=== PATIENT | male | born 1940 | race Caucasian/White ===

== ENCOUNTER 2016-09-10 10:49 | Day surgery (SDC) | payer OTHER, MEDICARE ==
[2016-09-10] MEDS ORDERED: LIDOCAINE 1% 2 ML INJ ONE (11:25)
[2016-09-10] MEDS ORDERED: LIDOCAINE 1% 5 ML SDV ID PRN (11:44)
[2016-09-10] MEDS ORDERED: LR 1,000 ML IV ONE (11:44)
[2016-09-10] MEDS ORDERED: PROPOFOL/EMULSION 500 MG/50 ML BOTTLE IV ONE (12:12)
[2016-09-10] MEDS ORDERED: LIDOCAINE 2% 100 MG/5 ML SYR ONE (12:13)
--- NOTE | 2016-09-10 13:42 | GPN ---
[f rep st] PROCEDURE NOTE PREPROCEDURE DIAGNOSIS: Melena and bright red blood per rectum. POSTPROCEDURE DIAGNOSES: 1. Mild gastritis. 2. Diverticulosis. 3. Grade 2 internal hemorrhoids. 4. Mild nonspecific sigmoid colitis. 5. Three colon polyps, status post removal using cold biopsy forceps. PROCEDURES: Esophagogastroduodenoscopy with biopsies, colonoscopy with biopsies. MEDICATIONS: Monitored anesthesia care. INDICATIONS: The patient is a 76-year-old male with history of Parkinson disease and lower abdomin al pain, as well as hematochezia and melena. He was seen in our office for these reasons. He is here today for further evaluation of bright red blood per rectum and melena. The risks and benefits of t he procedure were discussed with the patient. Consent obtained. Risks include, but not limited to, b leeding, perforation, risks associated with sedation. The patient is ASA Class 2. DESCRIPTION OF PROCEDURE: The upper endoscope was inserted into the esophagus, into the stomach and second portion of the duodenum. The esophagus appears normal. The Z-line is regular. There was no e vidence of [place] esophagitis or varices. The stomach shows mild antral gastritis consistent with e rosions and erythema. Biopsies were taken using cold biopsy forceps to evaluate for Helicobacter pyl adan. The duodenum and second portion was normal. Retroflexed views in the stomach were normal. The p atient was then repositioned and the adult colonoscope was advanced into the terminal ileum which ap peared normal. The ileocecal valve, appendiceal orifice, cecum appeared normal. There is a 2 mm poly p in the ascending colon, which was removed using cold biopsy forceps and sent off to Pathology. The hepatic flexure, transverse colon, splenic flexure were normal. The descending colon shows one of t he 2 mm polyps which were removed using cold biopsy forceps and sent off for pathology. The sigmoid colon and descending colon show scattered diverticulosis. This is moderate in severity. In the sigmo id colon as well, there are 2 localized patchy areas of colitis. The first is 3 cm x 4 cm and contai ns a linear ulcer. Biopsies were taken and sent to Pathology. The second area is distal and is 2 cm x 3 cm and biopsies were taken and placed in a separate bottle. This colitis is nonspecific and may be related to prep-related injury or constipation. It does not have the classic appearance for eithe r infection or chronic colitis. Retroflexed views in the rectum showed grade 2 internal hemorrhoids. IMPRESSION: 1. Mild antral gastritis. 2. Diverticulosis. 3. Internal hemorrhoids, grade 2. 4. Colon polyps status post removal. 5. Patchy sigmoid colitis which was nonspecific and limited to 2 areas and not extensive. RECOMMENDATIONS: 1. Advance diet as tolerated. 2. Discharge to home with escort. 3. Continue current medications. 4. Follow up the final pathology results. Results available within 10 days. If 3 or more polyps are found to be adenomatous, repeat colonoscopy in 3 years is recommended. If 1-2 polyps adenomatous, r epeat colonoscopy in 5 years is recommended. 5. Avoid constipation and increasing dietary fiber. Recommend adding Benefiber 1-2 scoops orally da robert. Internal hemorrhoids can be treated also with hydrocortisone suppositories 25 mg rectally at [facility] [place] x[facility] days and I will offer this treatment to him today. 6. Follow up in our GI clinic as previously scheduled. 7. I thank you for allowing me to participate in the care of your patient. Please do not hesitate t o call with questions. /[id number]/MODL
== END 2016-09-10 14:00 | disposition home or self-care (01) ==
LOC: FSGY 10:49
PROVIDERS: ATTEND Internal Medicine Gastroenterology
PROC: 0DBK8ZX Excision of Ascending Colon, Via Natural or Artificial Opening Endoscopic, Diagnostic (ICD-10-PCS; principal; 2016-09-10 12:15)
PROC: 0DB68ZX Excision of Stomach, Via Natural or Artificial Opening Endoscopic, Diagnostic (ICD-10-PCS; principal; 2016-09-10 12:15)
PROC: 0DBM8ZZ Excision of Descending Colon, Via Natural or Artificial Opening Endoscopic (ICD-10-PCS; principal; 2016-09-10 12:15)
PROC: 0DBN8ZX Excision of Sigmoid Colon, Via Natural or Artificial Opening Endoscopic, Diagnostic (ICD-10-PCS; principal; 2016-09-10 12:15)
DX: D12.4 Benign neoplasm of descending colon (principal); D12.2 Benign neoplasm of ascending colon; K62.5 Hemorrhage of anus and rectum; K29.70 Gastritis, unspecified, without bleeding; K57.30 Diverticulosis of large intestine without perforation or abscess without bleeding; K52.9 Noninfective gastroenteritis and colitis, unspecified; K64.1 Second degree hemorrhoids; G20 Parkinson's disease; Z87.11 Personal history of peptic ulcer disease
CPT/HCPCS: J2001; J2704

== ENCOUNTER → 2017-07-22 | Outpatient (CLI) | payer OTHER, MEDICARE | LOC: BHFA 14:45 | PROVIDERS: ATTEND Internal Medicine Cardiovascular Disease | DX: R07.9 Chest pain, unspecified (principal); R06.02 Shortness of breath; I49.9 Cardiac arrhythmia, unspecified ==

== ENCOUNTER 2017-07-24 14:53 | Observation (INO) | payer OTHER, MEDICARE ==
--- NOTE | 2017-07-24 15:03 | CPEKG ---
Heart Rate: 73 RR Interval: 822 P-R Interval: 188 QRSD Interval: 98 QT Interval: 436 QTC Interval: 481 P [place]: 39 QRS [place]: -7 T Wave [place]: 49 EKG Severity - BORDERLINE ECG - EKG Impression: SINUS RHYTHM EKG Impression: PROBABLE LEFT ATRIAL ABNORMALITY EKG Impression: BORDERLINE PROLONGED QT INTERVAL Electronically Signed By: Kale Kenyon 24-Jul-2017 15:07:48
--- NOTE | 2017-07-24 15:18 | EDPHY ---
H & P Time Seen by Provider: 07/24/17 15:07 HPI/ROS: CHIEF COMPLAINT: Altered mental status HISTORY OF PRESENT ILLNESS: The patient is a 77-year-old man with a history of Parkinson's who comes to the emergency department with his and daughter. He had a stress test today. He is being worked up for an arrhythmia it but no definitive diagnosis yet. He has not had any chest pain or shortness of breath. A few hours After the stress test at 2:00 p.m. He seemed very confused to his and could not remember his work partners name or other things that are very normal for him to know. He also had slurred speech. His brought him to the ER where triage nurse noticed that he also had a facial droop. The family feels that the left corner of his mouth is drooping however when he smiles it is actually the right side of his mouth does not move. He denies vision changes. He has normal movement and strength in his extremities. He also complains of a severe left-sided headache. His and family state that his memory difficulties have improved dramatically since onset. He is not on blood thinners. REVIEW OF SYSTEMS: Constitutional: denies: chills, fever, recent illness, recent injury EENTM: denies: blurred vision, double vision, nose congestion Respiratory: denies: cough, shortness of breath Cardiac: denies: chest pain, irregular heart rate, lightheadedness, palpitations Gastrointestinal/Abdominal: denies: abdominal pain, diarrhea, nausea, vomiting, blood streaked stools Genitourinary: denies: dysuria, frequency, hematuria, pain Musculoskeletal: denies: joint pain, muscle pain Skin: denies: lesions, rash, jaundice, bruising Neurological: See HPI Hematologic/Lymphatic: denies: blood clots, easy bleeding, easy bruising Immunologic/allergic: denies: HIV/AIDS, transplant EXAM: GENERAL: Well-appearing, well-nourished and in no acute distress. HEAD: Atraumatic, normocephalic. EYES: Pupils equal round and reactive to light, extraocular movements intact, sclera anicteric, conjunctiva are normal. ENT: TMs normal, nares patent, oropharynx clear without exudates. Moist mucous membranes. NECK: Normal range of motion, supple without lymphadenopathy or JVD. LUNGS: Breath sounds clear to auscultation bilaterally and equal. No wheezes rales or rhonchi. HEART: Regular rate and rhythm without murmurs, rubs or gallops. ABDOMEN: Soft, nontender, normoactive bowel sounds. No guarding, no rebound. No masses appreciated. BACK: No CVA tenderness, no spinal tenderness, step-offs or deformities EXTREMITIES: Normal range of motion, no pitting or edema. No clubbing or cyanosis. NEUROLOGICAL: Right-sided droop, slurred speech. normal gait. 5/5 strength, normal movement in all extremities, normal and equal sensation no pronator drift. NIH score of 2 PSYCH: Normal mood, normal affect. SKIN: Warm, dry, normal turgor, no visible rashes or lesions. Source: Patient, Family Exam Limitations: No limitations - Medical/Surgical History Hx Asthma: No Hx Diabetes: No - Family History Significant Family History: No pertinent family hx - Social History Smoking Status: Never smoked Alcohol Use: Sober Drug Use: None Constitutional: Initial Vital Signs Temperature (C) 36.6 C 07/24/17 15:40 Heart Rate 75 07/24/17 15:40 Respiratory Rate 16 07/24/17 15:40 Blood Pressure 212/98 H 07/24/17 15:40 O2 Sat (%) 96 07/24/17 15:40 O2 Delivery Mode Room Air Allergies/Adverse Reactions: codeine Allergy (Verified 09/07/16 17:03) Other-Enter Comments Home Medications: Medication Instructions Recorded Carbidopa/Levodopa 25/100Mg 2 tab PO QID 09/07/16 [Sinemet 25/100 MG (*)] Cholecalciferol Vit D3 [Vitamin D3 1,000 units PO DAILY 09/07/16 (*)] Pramipexole Di-HCl [Mirapex 0.125 0.125 mg PO QID 09/07/16 mg (*)] Simvastatin 40 mg PO DAILY 09/07/16 clonazePAM [Klonopin (*)] 1 mg PO HS 09/07/16 diphenhydrAMINE [Benadryl 25 MG 25 mg PO HS PRN 09/07/16 (*)] Citalopram [CeleXA] 20 mg PO DAILY 07/24/17 Medical Decision Making - Diagnostics EKG Interpretation: An EKG obtained and was read and documented in trace view. Please see trace view for full reading and report. Sinus rhythm the no acute ischemic changes Imaging Results: Imaging Impressions Neck CTA 07/24/17 15:09 Impression: 1. There is extensive atherosclerotic calcific plaque throughout the arterial tree, with no hemodynamically significant ICA stenosis on either side. 2. Moderate stenosis suspected of the origin of the left vertebral artery, with a dominant right vertebral artery which provides inflow to the basilar artery. 3. There is no intra-arterial thrombus, ulceration, or dissection identified. CT ANGIOGRAPHY OF THE BRAIN: The major vessels of the [place] are well visualized, and there is no aneurysm, vascular malformation, or acute occlusion identified. The distal cervical, petrous, cavernous, and supraclinoid portions of the internal carotid arteries are notable for extensive atherosclerotic calcifications, most pronounced at the level of the cavernous and proximal supraclinoid ICAs where there are some mild to moderate stenoses seen bilaterally. The A1 and A2 segments are patent as are the M1, M2, and M3 trifurcation vessels. 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 With regards to the posterior circulation, the distal left vertebral artery is the more diminutive vessel, ending at the level of the PICA, and the right vertebral artery provides inflow to the basilar artery. There is a mild to moderate stenosis associated with the right vertebral artery secondary to circumferential atherosclerotic plaque at the level of the skull base. The posterior inferior cerebellar arteries, vertebrobasilar confluence, basilar artery, superior cerebellar arteries, and the posterior cerebral arteries are patent. The dural venous sinuses appear patent. Impression: Atherosclerotic features, but no acute intra-arterial thrombus identified. CT Source Data: The lung apices are clear. The visualized superior mediastinum is notable for a calcified granuloma at the subcarinal space. The visualized aorta is normal in size. There is some minimal thyroid gland heterogeneity with some subcentimeter hypodense nodules. There is a single curvilinear coarse calcification along the anterior midpole of the left lobe of the thyroid gland. The trachea is midline. The larynx, hypopharynx, epiglottis, and the oral cavity is within normal limits. Beam hardening artifact results in some limitation of assessment of the mouth. There is a moderate degree of cerebral cortical atrophy, with extensive periventricular white matter change. Measurement of carotid stenosis is based on the residual internal carotid diameter with [place] Symptomatic Carotid Endarterectomy Trial (NASCET) based stenosis levels. Findings were discussed with RICK LAI MD at 15:48, on 07/24/2017. Chest X-Ray 07/24/17 15:10 Impression: Negative. Head CT 07/24/17 15:10 Impression: Moderately advanced senescent features, with no acute abnormality identified on this unenhanced CT evaluation. If there is further clinical concern regarding the patient's symptoms, MR imaging is suggested, if not otherwise contraindicated. Findings were discussed with RICK LAI MD at 15:17, on 07/24/2017. He requested proceeding to CTA of the head and neck, which will be separately reported. Head CTA 07/24/17 15:35 Impression: 1. There is extensive atherosclerotic calcific plaque throughout the arterial tree, with no hemodynamically significant ICA stenosis on either side. 2. Moderate stenosis suspected of the origin of the left vertebral artery, with a dominant right vertebral artery which provides inflow to the basilar artery. 3. There is no intra-arterial thrombus, ulceration, or dissection identified. CT ANGIOGRAPHY OF THE BRAIN: The major vessels of the [place] are well visualized, and there is no aneurysm, vascular malformation, or acute occlusion identified. The distal cervical, petrous, cavernous, and supraclinoid portions of the internal carotid arteries are notable for extensive atherosclerotic calcifications, most pronounced at the level of the cavernous and proximal supraclinoid ICAs where there are some mild to moderate stenoses seen bilaterally. The A1 and A2 segments are patent as are the M1, M2, and M3 trifurcation vessels. 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 With regards to the posterior circulation, the distal left vertebral artery is the more diminutive vessel, ending at the level of the PICA, and the right vertebral artery provides inflow to the basilar artery. There is a mild to moderate stenosis associated with the right vertebral artery secondary to circumferential atherosclerotic plaque at the level of the skull base. The posterior inferior cerebellar arteries, vertebrobasilar confluence, basilar artery, superior cerebellar arteries, and the posterior cerebral arteries are patent. The dural venous sinuses appear patent. Impression: Atherosclerotic features, but no acute intra-arterial thrombus identified. CT Source Data: The lung apices are clear. The visualized superior mediastinum is notable for a calcified granuloma at the subcarinal space. The visualized aorta is normal in size. There is some minimal thyroid gland heterogeneity with some subcentimeter hypodense nodules. There is a single curvilinear coarse calcification along the anterior midpole of the left lobe of the thyroid gland. The trachea is midline. The larynx, hypopharynx, epiglottis, and the oral cavity is within normal limits. Beam hardening artifact results in some limitation of assessment of the mouth. There is a moderate degree of cerebral cortical atrophy, with extensive periventricular white matter change. Measurement of carotid stenosis is based on the residual internal carotid diameter with [place] Symptomatic Carotid Endarterectomy Trial (NASCET) based stenosis levels. Findings were discussed with RICK LAI MD at 15:48, on 07/24/2017. Imaging: Discussed imaging studies w/ scallop binder Radiologist ED Course/Re-evaluation: Patient's exam is somewhat confusing. According to the family he has some weakness on his right side because of his Parkinson's. Patient's family feels like the left side of his mouth looks droopy however this is the side that he is more able to move when he smiles. His right side is less mobile it. He does have slurred speech but no aphasia. 3:40 p.m. I updated the family with CT scan report. The patient is still symptomatic. Keaton Pedersen is ready to evaluate 3:50 p.m. Keaton Pedersen has evaluated. They feel that the patient's symptoms are improving and do not feel that tPA is indicated. Family is requesting headache medications. I will treat with Reglan and Toradol and admit to the medical service. 4:30 p.m. I discussed the case with Dr. Rashid who will admit and requests med surg. Differential Diagnosis: Partial list of the Differential diagnosis considered include but were not limited to; CVA, TIA, migraine and although unlikely based on the history and physical exam, I also considered hemorrhage, dissection. I discussed these differential diagnoses and the plan with the patient as well as the usual and expected course. The patient understands that the diagnosis is provisional and that in medicine we are not always correct and that further workup is often warranted. Usual and customary warnings were given. All of the patient's questions were answered. The patient was instructed to return to the emergency department should the symptoms at all worsen or return, otherwise to followup with the physician as we discussed. Critical Care Time: Critical care time spent by me, Dr. Lai exclusive with this patient was 35 minutes, exclusive of the PA time exclusive of procedures. The organ system that was at risk was neurologic and I gave stroke alert protocol, consultation and admission to prevent worsening of the patient's condition - Data Points Laboratory Results: Laboratory Results 07/24/17 15:02 07/24/17 15:02 07/24/17 07/24/17 07/24/17 15:04 15:02 15:02 WBC RBC Hgb POC Hgb 16.0 gm/dL gm/dL (13.7-17.5) Hct POC Hct 47 % % (40-51) MCV MCH MCHC RDW Plt Count MPV Neut % (Auto) Lymph % (Auto) [place] % (Auto) Eos % (Auto) Baso % (Auto) Nucleat RBC Rel Count Absolute Neuts (auto) Absolute Lymphs (auto) Absolute Monos (auto) Absolute Eos (auto) Absolute Basos (auto) Absolute Nucleated RBC Immature Gran % Immature Gran # PT INR POC Sodium 140 mEq/L mEq/L (135-145) Sodium 137 mEq/L mEq/L (135-145) POC Potassium 3.8 mEq/L mEq/L (3.3-5.0) Potassium 3.9 mEq/L mEq/L (3.5-5.2) POC Chloride 101 mEq/L mEq/L (97-110) Chloride 103 mEq/L mEq/L (97-110) Carbon Dioxide 24 mEq/l mEq/l (22-31) Anion Gap 10 mEq/L mEq/L (8-16) POC BUN 18 mg/dL mg/dL (7-23) BUN 16 mg/dL mg/dL (7-23) Creatinine 0.7 mg/dL mg/dL (0.7-1.3) POC Creatinine 0.8 mg/dL mg/dL (0.7-1.3) Estimated GFR > 60 Glucose 93 mg/dL mg/dL (70-100) POC Glucose 98 mg/dL mg/dL (70-100) Hemoglobin A1c 5.5 % % (4.0-6.0) Estim Average Glucose 111 mg/dL mg/dL (68-126) Calcium 9.8 mg/dL mg/dL (8.5-10.4) 07/24/17 07/24/17 15:02 15:02 WBC 7.85 10^3/uL 10^3/uL (3.80-9.50) RBC 4.70 10^6/uL 10^6/uL (4.40-6.38) Hgb 16.4 g/dL g/dL (13.7-17.5) POC Hgb Hct 46.1 % % (40.0-51.0) POC Hct MCV 98.1 fL fL (81.5-99.8) MCH 34.9 pg H pg (27.9-34.1) MCHC 35.6 g/dL g/dL (32.4-36.7) RDW 11.9 % % (11.5-15.2) Plt Count 174 10^3/uL 10^3/uL (150-400) MPV 9.4 fL fL (8.7-11.7) Neut % (Auto) 69.1 % % (39.3-74.2) Lymph % (Auto) 19.0 % % (15.0-45.0) [place] % (Auto) 10.2 % % (4.5-13.0) Eos % (Auto) 1.1 % % (0.6-7.6) Baso % (Auto) 0.3 % % (0.3-1.7) Nucleat RBC Rel Count 0.0 % % (0.0-0.2) Absolute Neuts (auto) 5.43 10^3/uL 10^3/uL (1.70-6.50) Absolute Lymphs (auto) 1.49 10^3/uL 10^3/uL (1.00-3.00) Absolute Monos (auto) 0.80 10^3/uL 10^3/uL (0.30-0.80) Absolute Eos (auto) 0.09 10^3/uL 10^3/uL (0.03-0.40) Absolute Basos (auto) 0.02 10^3/uL 10^3/uL (0.02-0.10) Absolute Nucleated RBC 0.00 10^3/uL 10^3/uL (0-0.01) Immature Gran % 0.3 % % (0.0-1.1) Immature Gran # 0.02 10^3/uL 10^3/uL (0.00-0.10) PT 13.6 SEC SEC (12.0-15.0) INR 1.02 (0.83-1.16) POC Sodium Sodium POC Potassium Potassium POC Chloride Chloride Carbon Dioxide Anion Gap POC BUN BUN Creatinine POC Creatinine Estimated GFR Glucose POC Glucose Hemoglobin A1c Estim Average Glucose Calcium Medications Given: Aspirin Buffered (Aspirin Ec) 325 mg PO DAILY REGI Stop: 01/20/18 17:14 Last Admin: 07/24/17 17:54 Dose: Not Given Discontinued Medications Aspirin (Aspirin Rectal) 300 mg [place] EDNOW ONE Stop: 07/24/17 17:16 Last Admin: 07/24/17 17:54 Dose: 300 mg Dexamethasone (Decadron Injection) 10 mg IVP EDNOW ONE Stop: 07/24/17 15:56 Last Admin: 07/24/17 16:22 Dose: 10 mg Ketorolac Tromethamine (Toradol) 30 mg IVP EDNOW ONE Stop: 07/24/17 15:56 Last Admin: 07/24/17 16:24 Dose: 30 mg Metoclopramide HCl (Reglan Injection) 10 mg IVP EDNOW ONE Stop: 07/24/17 15:56 Last Admin: 07/24/17 16:25 Dose: 10 mg Point of Care Test Results: 07/24/17 15:04 POC Sodium 140 POC Potassium 3.8 POC Chloride 101 POC BUN 18 POC Creatinine 0.8 POC Glucose 98 Departure - Departure Disposition: [facility] Inpatient Acute Clinical Impression: Transient cerebral ischemia Qualifiers: Transient cerebral ischemia type: unspecified Qualified Code(s): G45.9 - Transient cerebral ischemic attack, unspecified Condition: Fair
[2017-07-24 15:23] LABS: PLATELET COUNT 174 10^3/uL (150-400)
[2017-07-24 15:32] LABS: INR 1.02 (0.83-1.16); PROTIME(PATIENT) 13.6 SEC (12.0-15.0)
[2017-07-24] MEDS ORDERED: METOCLOPRAMIDE 10 MG/2 ML VIAL IVP ONE (15:55)
[2017-07-24] MEDS ORDERED: KETOROLAC 30 MG/1 ML SDV IVP ONE (15:55)
[2017-07-24] MEDS ORDERED: DEXAMETHASONE 10 MG/ML VIAL IVP ONE (15:55)
--- NOTE | 2017-07-24 16:00 | PDCONSULT ---
Gis Instructor Note: [facility] Telehealth Note Demographics Consult Type: Acute Stroke First Name: Andres Last Name: Suhail Date of : 1940 Age: 77 Referring Provider: Dr Lai Time of initial page (): 07/24/2017 15:01 Time of return call (): 07/24/2017 15:03 Time Ready to Initiate Telemed Consult (): 07/24/2017 15:03 HPI Additional History (Free Text): 77 year old man who had a cardiac stress test this morning. He went back to work and was confused at 2 p.m. with coworkers. In additional to confusion there was slurred speech noted - although he does not endorse this now. Perhaps a facial droop is also present. He is not having any symptoms in his limbs. There is a question of facial droop either on the left or perhaps on the right per Dr Lai left facial droop although exam by doctor is IQ questions if there is a right facial droop. Patient also has a history of Parkinson's disease. [facility]-- Past Medical History: Parkinson Disease Social History: non-smoker Medications: carbidopa/levodopa Exam Vitals: vital signs reviewed Mental Status: awake, follows commands Language: normal speech, no dysarthria, some hypophonia c/w PD Cranial Nerves: extra ocular movements intact, no facial droop, normal facial sensation Motor: normal strength, no drift, slowness of movements more on the right (chronic due to PD) Sensory: normal sensation NIHSS Time (): 07/24/2017 15:32 LOC 1a: 0 = Alert; keenly responsive LOC 1b: 0 = Answers both questions correctly LOC Commands: 0 = Performs both tasks correctly Best Gaze: 0 = Normal Visual: 0 = No visual loss Facial Palsy: 0 = Normal symmetrical movements Motor Arm L: 0 = No drift; limb holds 90 (or 45) degrees for full 10 seconds Motor Arm R: 0 = No drift; limb holds 90 (or 45) degrees for full 10 seconds Motor Leg L: 0 = No drift; leg holds 30-degree position for full 5 seconds Motor Leg R: 0 = No drift; leg holds 30-degree position for full 5 seconds Limb Ataxia: 0 = Absent Sensory: 0 = Normal; no sensory loss Best Language: 0 = No aphasia; normal Dysarthria: 0 = Normal Extinction + Inattention: 0 = No abnormality NIHSS: [address]: no bleed, CTA no significant stenosis or occlusion Assessment: Transient confusional state. Possibly TGA or transient encephalopathy related to metabolic or toxic issue. Uncertain that this represents cerebral ischemia. Plan Lytic/Intervention: NOT IV or IA candidate Imaging: MRI brain without Other: telemetry monitoring, I have discussed my recommendations with the referring provider Additional Recommendations: Ideally would observe overnight to ensure clinical stability. Cont home doses of PD meds Disposition: observation Logistics Telemedicine: Interactive 2 way audio and visual telecommunication technology was utilized during this visit. Provider Location: [place] Patient Location: [facility]
[2017-07-24] MEDS ORDERED: ACETAMINOPHEN 325 MG TAB PO PRN (16:42)
[2017-07-24] MEDS ORDERED: ONDANSETRON DISINTEGRATING 4 MG TAB PO PRN (16:42)
[2017-07-24] MEDS ORDERED: ONDANSETRON 4 MG/2 ML VIAL IVP PRN (16:42)
--- NOTE | 2017-07-24 16:46 | ASMTLACE ---
DONOVAN Acuity / Level of Answers: Yes Care: Did the patient have an inpatient admission? # of Emergency department Answers: 1-2 visits in the last 6 months Score: 4 Date Signed: 07/24/2017 04:45 PM Electronically Signed By:Isabella Mane RN
[2017-07-24] MEDS ORDERED: PROMETHAZINE HCL 25 MG TAB PO PRN (17:08)
[2017-07-24] MEDS ORDERED: PROMETHAZINE HCL 25 MG/ML INJ IVP PRN (17:08)
[2017-07-24] MEDS ORDERED: diphenhydrAMINE 25 MG CAP PO PRN ×2 (17:09→20:00)
[2017-07-24] MEDS ORDERED: ASPIRIN RECTAL 300 MG SUPP PR ONE (17:15)
--- NOTE | 2017-07-24 17:30 | PDGENHP ---
History and Physical - Chief Complaint Acute encephalopathy - History of Present Illness Primary care provider: Dr. Sheldon Foss Primary pool hall inspector: Dr. Vin Upton HPI: 77-year-old male presenting with acute encephalopathy characterized as confusion, disorientation, impaired memory, with onset of symptoms around 2:00 p.m. On the day of presentation and duration persistent thereafter. There is also some associated right mouth palsy. The patient was otherwise feeling well and conducted a nuclear medicine stress test on the morning of this presentation. He had been feeling well prior to that study. After the stress test and upon returning home, the patient began experiencing an associated frontal headache, and he lay down for a nap in attempts to alleviated. This did not seem to improve the discomfort, and when the patient arose, his noted that he seemed confused, did not recognize her, was unable to describe current events. He has otherwise been taking all of his home medications, and the patient had recently been evaluated for what was characterized as an "athletic arrhythmia" with an outpatient echocardiogram, 24 hr Holter monitor, and a stress test. History Information - Allergies/Home Medication List Allergies/Adverse Reactions: codeine Allergy (Verified 09/07/16 17:03) Other-Enter Comments Home Medications: Carbidopa/Levodopa 25/100Mg [Sinemet 25/100 MG (*)] 2 tab PO QID 09/07/16 [Last Taken 07/24/17 15:00] Cholecalciferol Vit D3 [Vitamin D3 (*)] 1,000 units PO DAILY 09/07/16 [Last Taken 07/24/17] Pramipexole Di-HCl [Mirapex 0.125 mg (*)] 0.125 mg PO QID 09/07/16 [Last Taken 07/24/17 15:00] Simvastatin 40 mg PO DAILY 09/07/16 [Last Taken 07/24/17] clonazePAM [Klonopin (*)] 1 mg PO HS 09/07/16 [Last Taken 07/23/17] diphenhydrAMINE [Benadryl 25 MG (*)] 25 mg PO HS PRN 09/07/16 [Last Taken ] Citalopram [CeleXA] 20 mg PO DAILY 07/24/17 [Last Taken 07/24/17] I have personally reviewed and updated: family history, medical history, social history, surgical history - Past Medical History Additional medical history: Parkinson's disease on medication. Right shoulder rotator cuff injury. Undefined possible arrhythmia. Previous episode of colitis - Surgical History Additional surgical history: Right shoulder injections. August 2016 colonoscopy for colitis, demonstrating partial ischemic features - Family History Additional family history: Father with myocardial infarction at age 58, mother with CVA 73, no arrhythmias - Social History Smoking Status: Never smoked Alcohol Use: Occasionally Drug Use: None Additional social history: Normally independent in his ADLs Review of Systems Review of Systems: ROS: 10pt was reviewed & negative except for what was stated in HPI & below Neurological: Reports: headache, other (Confusion, disorientation) Physical Exam Physical Exam: Temp Pulse Resp BP Pulse Ox 36.6 C 85 18 191/89 H 96 07/24/17 15:40 07/24/17 16:00 07/24/17 16:00 07/24/17 16:00 07/24/17 16:00 Constitutional: no apparent distress, appears nourished, not in pain Eyes: PERRL, anicteric sclera, EOMI Ears, Nose, Mouth, Throat: moist mucous membranes, hearing normal, ears appear normal, no oral mucosal ulcers Cardiovascular: regular rate and rhythym, no murmur, rub, or gallop, No carotid bruit, No edema Respiratory: no respiratory distress, no rales or rhonchi, clear to auscultation Gastrointestinal: normoactive bowel sounds, soft, non-tender abdomen, no palpable masses, No distension Genitourinary: no bladder fullness, no bladder tenderness, no renal bruits Skin: warm, other (Plethoric cheeks), No rash Neurologic: AAOx3, sensation intact bilaterally, CN II-XII Intact (With the exception of right facial palsy), facial droop (Right facial palsy), No weakness (Motor strength 5/5 bilateral upper and lower extremities) Psychiatric: not anxious, not encephalopathic, poor memory, other ( Concentration 7/), No agitated Lab Data & Imaging Review 07/24/17 15:02 07/24/17 15:02 WBC 7.85 10^3/uL (3.80-9.50) 07/24/17 15:02 RBC 4.70 10^6/uL (4.40-6.38) 07/24/17 15:02 Hgb 16.4 g/dL (13.7-17.5) 07/24/17 15:02 POC Hgb 16.0 gm/dL (13.7-17.5) 07/24/17 15:04 Hct 46.1 % (40.0-51.0) 07/24/17 15:02 POC Hct 47 % (40-51) 07/24/17 15:04 MCV 98.1 fL (81.5-99.8) 07/24/17 15:02 MCH 34.9 pg (27.9-34.1) H 07/24/17 15:02 MCHC 35.6 g/dL (32.4-36.7) 07/24/17 15:02 RDW 11.9 % (11.5-15.2) 07/24/17 15:02 Plt Count 174 10^3/uL (150-400) 07/24/17 15:02 MPV 9.4 fL (8.7-11.7) 07/24/17 15:02 Neut % (Auto) 69.1 % (39.3-74.2) 07/24/17 15:02 Lymph % (Auto) 19.0 % (15.0-45.0) 07/24/17 15:02 [place] % (Auto) 10.2 % (4.5-13.0) 07/24/17 15:02 Eos % (Auto) 1.1 % (0.6-7.6) 07/24/17 15:02 Baso % (Auto) 0.3 % (0.3-1.7) 07/24/17 15:02 Nucleat RBC Rel Count 0.0 % (0.0-0.2) 07/24/17 15:02 Absolute Neuts (auto) 5.43 10^3/uL (1.70-6.50) 07/24/17 15:02 Absolute Lymphs (auto) 1.49 10^3/uL (1.00-3.00) 07/24/17 15:02 Absolute Monos (auto) 0.80 10^3/uL (0.30-0.80) 07/24/17 15:02 Absolute Eos (auto) 0.09 10^3/uL (0.03-0.40) 07/24/17 15:02 Absolute Basos (auto) 0.02 10^3/uL (0.02-0.10) 07/24/17 15:02 Absolute Nucleated RBC 0.00 10^3/uL (0-0.01) 07/24/17 15:02 Immature Gran % 0.3 % (0.0-1.1) 07/24/17 15:02 Immature Gran # 0.02 10^3/uL (0.00-0.10) 07/24/17 15:02 PT 13.6 SEC (12.0-15.0) 07/24/17 15:02 INR 1.02 (0.83-1.16) 07/24/17 15:02 POC Sodium 140 mEq/L (135-145) 07/24/17 15:04 Sodium 137 mEq/L (135-145) 07/24/17 15:02 POC Potassium 3.8 mEq/L (3.3-5.0) 07/24/17 15:04 Potassium 3.9 mEq/L (3.5-5.2) 07/24/17 15:02 POC Chloride 101 mEq/L (97-110) 07/24/17 15:04 Chloride 103 mEq/L (97-110) 07/24/17 15:02 Carbon Dioxide 24 mEq/l (22-31) 07/24/17 15:02 Anion Gap 10 mEq/L (8-16) 07/24/17 15:02 POC BUN 18 mg/dL (7-23) 07/24/17 15:04 BUN 16 mg/dL (7-23) 07/24/17 15:02 Creatinine 0.7 mg/dL (0.7-1.3) 07/24/17 15:02 POC Creatinine 0.8 mg/dL (0.7-1.3) 07/24/17 15:04 Estimated GFR > 60 07/24/17 15:02 Glucose 93 mg/dL (70-100) 07/24/17 15:02 POC Glucose 98 mg/dL (70-100) 07/24/17 15:04 Calcium 9.8 mg/dL (8.5-10.4) 07/24/17 15:02 Visualized and Interpreted Chest x-ray results: Yes Chest X-Ray results: no infiltrate Visualized and Interpreted EKG results: Yes EKG Interpretation: Positive for: normal sinsus rhythm (T-wave inversion in V6, poor R-wave progression in lead V2) Assessment & Plan Assessment: 77-year-old male presenting with acute encephalopathy, concerning for TIA versus CVA Plan: 1. Acute encephalopathy. New problem this provider, further workup indicated. Evidenced by global brain dysfunction characterized as confusion, disorientation, poor memory, with associated right mouth palsy and resultant hypertension, highly suggestive of TIA versus CVA given persistent deficits of memory impairment and right facial palsy -discussed with Dr. Maurice Lai, he reports to me that the patient has been evaluated by [facility], given improvement in patient's cognitive symptoms, they did not recommend tPA -continue monitor on telemetry -order outside records including echocardiogram and 24 hr event monitor from [facility] -patient reports systolic blood pressure was 130 this morning prior to his episode, and is now greater than 200, continue permissive hypertension with systolic blood pressures between 180 and 220, given the likelihood of recent hypoperfusion -q.2 hours neuro checks -swallow eval -get MRI -hemoglobin A1c, troponin, LDL -give rectal aspirin now, oral 325 tomorrow after patient passes swallow eval -get Neurology consultation -I highly suspect that arrhythmia may be a contributing factor given the patient 's recent notation of "athletic arrhythmia" and outpatient workup which was being performed immediately prior to this presentation, recommend getting records from [facility] to determine what exactly the concern regarding arrhythmia was comma and determining whether the patient requires a transesophageal echocardiogram and consideration of systemic anticoagulation 2. Parkinson's disease. Chronic, continue home medications 3. Headache. Most likely residual status post TIA versus CVA, patient reports violent reaction to opiates, attempt to manage headache without opiates including Phenergan and Benadryl, Toradol as possible option as well 4. History of colitis. Reviewed outside records including 09/10/[address] Corona, reports that the patient's sigmoid colitis had partial ischemia features, and is certainly possible the patient may have had a arrhythmia related episodes of ischemic colitis in the past Diet. NPO, swallow eval, cardiac diet thereafter Prophylaxis. High risk patient, SCDs, hold pharm given possible CVA Code. Full, and daughter are joint MD POA Disposition. Anticipated discharge is 07/25, pending further workup as outlined above.
[2017-07-24] MEDS: ASPIRIN EC 325 MG TAB PO SCH (17:54)
[2017-07-24] MEDS ORDERED: clonazePAM 1 MG TAB PO SCH (21:00)
[2017-07-25] MEDS: CARBIDOPA/LEVODOPA 25 MG/100 MG TAB PO SCH ×2 (02:04→06:07)
[2017-07-25] MEDS: PRAMIPEXOLE 0.125 MG TAB PO SCH ×2 (02:05→06:07)
[2017-07-25 04:49] VITALS: PULSE 72; TEMP 97.5
[2017-07-25 07:39] VITALS: BP 155/86; RESP 18; O2SAT 91
[2017-07-25] MEDS ORDERED: CITALOPRAM 20 MG TAB PO SCH (09:00)
[2017-07-25] MEDS ORDERED: ATORVASTATIN CALCIUM 20 MG TAB PO SCH (09:00)
[2017-07-25] MEDS ORDERED: CHOLECALCIFEROL VIT D3 1,000 UNITS TAB PO SCH (09:00)
--- NOTE | 2017-07-25 09:39 | ASMTCMCOM ---
CM Note CM Note Notes: 07/25/2017 Case Management Note Reviewed chart. Pt admitted for confusion and possible TIA after undergoing a nuc stress test yesterday. Pt has strong family support and was indepedent in ADL's prior to admission. Case Management available if d/c needs arise. Pt to d/c independent with follow up as directed. Date Signed: 07/25/2017 09:38 AM Electronically Signed By:Abby Stewart RN
[2017-07-25] MEDS: ASPIRIN EC 325 MG TAB PO SCH (09:46)
--- NOTE | 2017-07-25 10:43 | ASDISCHSUM ---
Discharge Information Plan Status:Home with No Needs Medically Cleared to Leave:07/24/2017 Discharge Date:07/25/2017 10:04 AM CM D/C Disposition:Home, Routine, Self-Care ADT D/C Disposition:Home, Routine, Self-Care Projected Discharge Date:07/25/2017 10:04 AM Transportation at D/C:Self Discharge Delay Reason: Follow-Up Date:07/25/2017 10:04 AM Discharge Slot: Final Diagnosis: Placement Information Patient Contact Information Contact Name:MAL Relationship: Address:[address] [place] [address] Work Phone: City:[place] Alternate Phone: [facility]/Zip Code:[place] [address] Email: Financial Information Financial Class:Medicare Primary Plan Desc:MEDICARE OUTPATIENT Primary Plan Number:[id number] Secondary Plan Desc:[employer]/MDR SUPPLEMENT Secondary Plan Number:[id number] Assessment Information LACE LACE Acuity / Level of Answers: Yes Care: Did the patient have an inpatient admission? # of Emergency department Answers: 1-2 visits in the last 6 months Score: 4 Date Signed: 07/24/2017 04:45 PM Electronically Signed By:Isabella Mane RN [facility] Progress Note CM Note CM Note Notes: 07/25/2017 Case Management Note Reviewed chart. Pt admitted for confusion and possible TIA after undergoing a nuc stress test yesterday. Pt has strong family support and was indepedent in ADL's prior to admission. Case Management available if d/c needs arise. Pt to d/c independent with follow up as directed. Date Signed: 07/25/2017 09:38 AM Electronically Signed By:Abby Stewart, RN Intervention Information
--- NOTE | 2017-07-25 12:02 | NEUROPROG ---
Assessment: HOSPITAL NEUROLOGY CONSULT REQUESTING: Hector Pisano MD REASON: encephalopathy HPI: 77 year old right-handed man with a history of Parkinson disease, recently discovered afib, HLD who presented to our ED yesterday out of concern for a stroke. Patient has a nuclear stress test yesterday morning. He returned home, but several hours after returning home he seemed to be quite confused. He was on the telephone as started asking to whom he was speaking. He then turned to his and couldn't seem to recall her name. He had difficulty recalling names of prior work colleagues and friends. His was present and states she thinks the corned of his left lip sagged a bit. She denies any evidence of dysarthria. They went to the ED. On arrival, his was still thinking the patient had a left facial droop, but nobody else found this. ED physician noted right nasolabial fold flattening, but this is reportedly his baseline. His symptoms lasted about 2 hours and resolved on arrival to the ED. He has no weakness, sensory loss, visual disturbance, gait change, MACDONALD, fevers, CP, SOB, palpitations. He was admitted for further workup and observation. ROS: As per the HPI, otherwise a complete 12 point ROS was performed and is negative ALLERGIES AND MEDS: As recorded in the EMR - reviewed and reconciled PFSH: As per the intake H&P by Dr. Pisano from yesterday EXAM: VS reviewed in EMR GEN: WDWN laying in NAD HEENT: NCAT, sclera anicteric, conjunctiva not injected, MMM, oropharynx clear, no scalp tenderness NECK: supple, nontender, no meningismus CV: RRR s1 s2 wo m/r/c/g. Carotid pulses 2+ wo bruit NEURO: MS: awake, alert, oriented to all spheres. Hypomimetic and bradyphrenic. Speech hypophonic and bradykinetic. No language disturbance. Follows commands. Attends to both sides. Recent/remote memory grossly intact. Mood euthymic. Good fund of knowledge. CN: pupils 3mm round and reactive. Fundi with sharp discs. VFF. Primary gaze centered. Full ocular motility. Smooth pursuits with saccadic intrusions. Facial sensation preserved. Right nasolabial fold flattening (baseline). Hearing grossly intact to finger rub. Palatoglossal movements intact. Shoulder shrug and head turn strong. MOTOR: normal bulk. Mild cogwheeling about the right elbow/writst. Subtle resting tremor right hand. Full power throughout. SENSORY: symmetric LT/PP No extinction. COORD: no ataxia FN/HS. Eulalia bradykinetic R>L. REFLEX: plantars down. No clonus. DTRS 2+/4. GAIT: deferred to PT safety eval DATA REVIEW: Labs reviewed in EMR PERSONALLY INTERPRETED RESULTS AND DATA: MRI brain wo - global volume loss, deep white matter chronic microvascular ischemic changes surrounding the basal ganglia, moderate to severe, nothing acute CTA head/neck - nonhemodynamically significant atherosclerotic plaque scattered in the carotid system. IMPRESSION AND RECOMMENDATIONS: // ENCEPHALOPATHY - RESOLVED Patient with a transient episode of confusion many hours after his stress test. I don't think his stress test provoked this given symptoms onset hours afterward. Despite report of left facial droop, this was not observed by clinical staff (even though endorsed by his ). His event is somewhat nonspecific. I have a low suspicion for TIA given duration of symptoms and nonlocalizable symptom of confusion. 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 A number of things could have resulted in his transient confusion. I don't think any would be sinister. Regardless, he is going to follow with his PCP and cardiology for vascular risk factor optimization. Goal normotension. Goal normoglycemia with A1c at least less than 6.5. Continue statin. He will likely be transitioning from antiplatelet to anticoagulation given recent finding of afib - defer to cardiology/PCP. Stroke education provided. Will sign off. Objective: Vital Signs Temp Pulse Resp BP Pulse Ox 36.4 C 72 18 155/86 H 91 L 07/25/17 07:38 07/25/17 07:38 07/25/17 07:38 07/25/17 07:38 07/25/17 07:38 Laboratory Results 07/25/17 04:31 07/24/17 07/25/17 07/26/17 05:59 05:59 05:59 Intake Total 900 Output Total 400 Balance 500 PT 13.6 SEC (12.0-15.0) 07/24/17 15:02 INR 1.02 (0.83-1.16) 07/24/17 15:02 Allergies/Adverse Reactions: codeine Allergy (Verified 09/07/16 17:03) Other-Enter Comments
--- NOTE | 2017-07-25 13:44 | GDS ---
[f rep st] DISCHARGE SUMMARY DISCHARGE DIAGNOSIS: Acute encephalopathy. CONSULTATIONS: Neurology. STUDIES AND PROCEDURES DONE: 1. CT angio of the head and neck. 2. CT of the head. 3. MRI of the brain. PHYSICAL EXAM: GENERAL: The patient is alert. VITAL SIGNS: Afebrile at 36.4, pulse 72, respirator y rate is 18, blood pressure is 155/86, saturating 91% on room air. I have seen and evaluated the clover roman on the day of discharge. HOSPITAL COURSE: The patient is a 77-year-old male who presented with symptoms of encephalopathy, as well as weakness. He was admitted to the hospital for further evaluation. He did receive a consult ation from Neurology during this hospital course, as well as further imaging with CT angio of the hea d and neck, as well as MRI of the brain. It is felt that the patient's nuclear stress test that was performed 2 hours prior to the onset of his symptoms was the provoking factor of his symptoms. His s ymptoms have completely resolved. He has no residual affects. He will be discharged home with [facility] followup with Cardiology in the outpatient setting for his diagnosis of atrial fibrillation. Ther e are no pending studies. I have discussed the patient's disposition with Dr. Hammond of Neurology. He is in agreement with this plan. The patient's and daughter are also present and agreeable w ith this plan. DISCHARGE MEDICATIONS: Please refer to EMR form. I have not adjusted patient's previously prescribe d home medications to the best of my knowledge. FOLLOWUP: Will be with Dr. Foss, as well as the patient's primary asset analyst. /[id number]/MODL
== END 2017-07-25 10:04 | disposition home or self-care (01) ==
LOC: F3N 18:24
PROVIDERS: ADMIT Internal Medicine; ATTEND Internal Medicine
DX: G93.40 Encephalopathy, unspecified (principal); R53.1 Weakness; R29.700 NIHSS score 0; R51 Headache; I49.9 Cardiac arrhythmia, unspecified; I77.9 Disorder of arteries and arterioles, unspecified; G20 Parkinson's disease; E78.5 Hyperlipidemia, unspecified; Z82.49 Family history of ischemic heart disease and other diseases of the circulatory system; Z82.3 Family history of stroke
CPT/HCPCS: 70450; 70496; 70498; 70551; 71045; 78452; 92523; 93005; 93017; 96374; 96375; 97161; 97165; 99291; A9500; G0378; G8978; G8979; G8980; G8987; G8988; G8989; G8999; G9158; G9186; J1100; J1885; J2765; J2785; 82947-QW

== ENCOUNTER 2017-10-30 09:24 | Emergency (ER) | payer OTHER, MEDICARE ==
--- NOTE | 2017-10-30 09:51 | EDPHY ---
H & P Time Seen by Provider: 10/30/17 09:32 HPI/ROS: CHIEF COMPLAINT: Head injury, skin tear HISTORY OF PRESENT ILLNESS: 77-year-old male presents to the emergency department with his after he had a mechanical fall at home. The patient was in the bathroom and was trying to put on his shorts and was not using the grab bar at his side like he is supposed to and fell hitting his head on the marble floor. He has a history of Parkinson's disease but states that his balance is usually pretty good. He denies a headache. Denies any presyncopal symptoms prior to his fall. Denies pain in his chest or difficulty breathing. Denies abdominal pain. Denies neck or back pain. Denies injury to upper or lower extremities. He did sustain skin tears. He believes his tetanus shot is current. REVIEW OF SYSTEMS: Constitutional: No fever, no chills. Eyes: No double or blurry vision. ENT: No sore throat. Respiratory: No cough, no shortness of breath. Cardiac: No chest pain. Gastrointestinal: No abdominal pain, vomiting or diarrhea. Genitourinary: No dysuria. Musculoskeletal: No neck or back pain. Skin: Skin tears. No rashes. Neurological: No headache. Past Medical/Surgical History: Parkinson's Social History: Smoking Status: Never smoked Physical Exam: General Appearance: Alert, no distress. Mentating normally and answering questions appropriately. His is at bedside. Eyes: Pupils equal and round. Extraocular motions are all intact. ENT: Mouth: Mucous membranes moist. Respiratory: No wheezing, rhonchi, or rales, lungs are clear to auscultation. Cardiovascular: Regular rate and rhythm. Gastrointestinal: Abdomen is soft and nontender, no masses, no rebound or guarding, bowel sounds normal. Neurological: Alert and oriented x 3, cranial nerves II through XII grossly intact Skin: Superficial abrasion the posterior aspect of the left elbow. There is also a superficial skin tear noted to the dorsal, medial aspect of the right foot overlying 1st metatarsal. There is a small 1 cm laceration the occiput of the scalp with very slow active bleeding noted. Palpable hematoma noted to the posterior aspect of the scalp. Warm and dry, no rashes. Musculoskeletal: Nontender to palpate along the cervical, thoracic or lumbar spine. Neck is supple. Extremities: Full range of motion and no peripheral edema. Psychiatric: Patient is oriented X 3, there is no agitation. Constitutional: Initial Vital Signs Temperature (C) 36.6 C 10/30/17 09:27 Heart Rate 56 L 10/30/17 09:27 Respiratory Rate 17 10/30/17 09:27 Blood Pressure 137/56 H 10/30/17 09:27 O2 Sat (%) 97 10/30/17 09:27 O2 Delivery Mode Room Air Allergies/Adverse Reactions: codeine Allergy (Verified 10/30/17 09:25) Other-Enter Comments Home Medications: Medication Instructions Recorded Carbidopa/Levodopa 25/100Mg 2 tab PO QID 09/07/16 [Sinemet 25/100 MG (*)] Cholecalciferol Vit D3 [Vitamin D3 1,000 units PO DAILY 09/07/16 (*)] Pramipexole Di-HCl [Mirapex 0.125 0.125 mg PO QID 09/07/16 mg (*)] Simvastatin 40 mg PO DAILY 09/07/16 clonazePAM [Klonopin (*)] 1 mg PO HS 09/07/16 diphenhydrAMINE [Benadryl 25 MG 25 mg PO HS PRN 09/07/16 (*)] Citalopram [CeleXA 20 MG] 20 mg PO DAILY 07/24/17 Medical Decision Making - Diagnostics Imaging Results: Imaging Impressions Head CT 10/30/17 09:45 Impression: Stable CT x4 months. Nothing acute identified.. Results called to Tila Paniagua at 10:55 AM General information for patients regarding this examination can be found at [email or web address]. If you have questions or comments about this report, please contact me at (hospital) or [phone] (cell). Imaging: Discussed imaging studies w/ on call Radiologist Procedures: Laceration repair. Verbal consent was obtained from the patient. The 1 cm laceration on the posterior scalp was anesthetized using 1% lidocaine with epinephrine. The wound was irrigated with saline, draped and explored to its base with a gloved finger. There were no deep structures involved. The wound was repaired with 3 isidro. The wound repair was simple. The procedure was performed by myself. ED Course/Re-evaluation: 77-year-old male presents with scalp laceration and closed head injury. The patient is on Xarelto. I was concerned about possible intracranial bleeding. I recommended CT imaging of his brain. I discussed the pros and cons including radiation exposure in both the patient and his at bedside agree. CT scan of the brain has been ordered and is pending. Patient's superficial abrasion noted to his right foot and left elbow have been cleansed and dressed. The scalp laceration was repaired, see procedure note. CT imaging of the brain was normal. No intracranial bleeding or skull fracture. Differential Diagnosis: Head injury including but not limited to concussion, skull fracture, intraparenchymal contusion, subarachnoid, subdural and epidural hematoma. Departure - Departure Disposition: Home, Routine, Self-Care Clinical Impression: Skin tear of left upper extremity Scalp laceration Qualifiers: Encounter type: initial encounter Qualified Code(s): S01.01XA - Laceration without foreign body of scalp, initial encounter Noninfected skin tear of right lower extremity Qualifiers: Encounter type: initial encounter Qualified Code(s): S81.811A - Laceration without foreign body, right lower leg, initial encounter Condition: Good Instructions: Laceration (ED), Head Injury (ED), Staple Care (ED), Acute Wounds (ED) Additional Instructions: Wound Care Follow-Up: Removal of sutures in 7 days. Suture removal is complimentary in uncomplicated cases. Infection or abnormal findings would require reevaluation by the MD. In that case, you may be billed. Return to the emergency department if you developed headache, vomiting, altered mental status, or any other concerns. The CT scan of your brain today looks stable and no evidence of acute intracranial bleeding or skull fracture. Referrals: Angel Foss MD [Primary Care Provider] - As per Instructions
[2017-10-30 11:08] VITALS: BP 163/83
== END 2017-10-30 11:08 | disposition home or self-care (01) ==
PROC: 0HQ0XZZ Repair Scalp Skin, External Approach (ICD-10-PCS; principal; 2017-10-30)
DX: S01.01XA Laceration without foreign body of scalp, initial encounter (principal); S81.811A Laceration without foreign body, right lower leg, initial encounter; S41.112A Laceration without foreign body of left upper arm, initial encounter; W01.198A Fall on same level from slipping, tripping and stumbling with subsequent striking against other object, initial encounter; Y92.002 Bathroom of unspecified non-institutional (private) residence as the place of occurrence of the external cause